=== PATIENT | female | born 1990 | race Caucasian/White ===

== ENCOUNTER 2016-04-15 06:48 | Inpatient (IN) | payer BC ==
[~2016-04-15] VITALS: Ht 167.6 cm; Wt 90.9 kg
[~2016-04-15 06:48] MED LIST: CEFTIN 250250 MG/TAB PO; CLARITIN 1010 MG/TAB PO; COLACE 100100 MG/CAP PO; DICLEGIS; MACROBID 1100 MG/CAP PO; MOTRIN 800800 MG/TAB PO; NORCO 325 MG-51 TAB PO; NORCO 325 MG-7.1 TAB; PRILOSEC10 MG PO; ROBAXIN 75750 MG/TAB PO; ZYRTEC 10MG10 MG PO; ZYRTEC10 MG PO
[2016-04-30] VITALS (26 sets, daily range): BP systolic 100–142; BP diastolic 53–89; PULSE 76–121; TEMP 97.7–98.4
[2016-04-30 07:16] LABS: BASO % 0.3 % (0.0-2.0); EOS # 0.1 (0.0-0.7); EOS % 1.6 % (0-4.0); GRAN # 6.5 (1.4-6.5); GRAN % 73.5 % (42.2-75.2); LYMPH # 1.6 (1.2-3.4); LYMPH % 17.9 % (20.0-51.0); MEAN CELL VOLUME 86 fl (80.0-100.0); MEAN CORPUSCULAR HGB CONC 32 g/dl (33.0-37.0); MEAN PLATELET VOLUME 11.4 fl (7.4-10.4); MONO # 0.6 (0.1-0.6); MONO % 6.4 % (1.7-9.3); PLATELET COUNT 203 K/mm3 (130-400); RED BLOOD COUNT 3.89 M/mm3 (4.10-5.30); WHITE BLOOD COUNT 8.9 K/mm3 (4.8-10.8)
[2016-04-30 07:33] LABS: HEMATOCRIT 33.3 % (37.0-47.0); HEMOGLOBIN 10.8 g/dl (12.5-16.0); MEAN CORPUSCULAR HEMOGLOBIN 28 pg (27.0-31.0)
[2016-05-01 03:50] VITALS: BP 123/68; PULSE 79; TEMP 97.9
[2016-05-01 07:20] VITALS: BP 114/54; PULSE 84; TEMP 98.1
[2016-05-01] MEDS ORDERED: IBU800 M1 PO (09:17)
[2016-05-01] MEDS ORDERED: PERCOCET 325 MG1 TA2 PO (09:18)
== END 2016-05-01 13:40 | disposition home or self-care (01) | DRG 775 ==
LOC: EDSTATUS 06:48 → LDRO 08:54 → LDR 04-30 06:00 → OB 04-30 06:00 → LDR 04-30 06:50 → OB 04-30 13:30
PROVIDERS: Obstetrics & Gynecology
PROC: 10E0XZZ Delivery of Products of Conception, External Approach (ICD-10-PCS; principal; 2016-04-30)
PROC: 0UQMXZZ Repair Vulva, External Approach (ICD-10-PCS; 2016-04-30)
DX: O48.0 Post-term pregnancy (principal); O69.81X0 Labor and delivery complicated by cord around neck, without compression, not applicable or unspecified; O43.123 Velamentous insertion of umbilical cord, third trimester; O70.0 First degree perineal laceration during delivery; Z3A.40 40 weeks gestation of pregnancy; Z37.0 Single live birth
CPT/HCPCS: J2590; J7120

== ENCOUNTER 2016-05-08 17:22 | Emergency (ER) | payer BC ==
[~2016-05-08] VITALS: Ht 167.6 cm; Wt 83.4 kg
[~2016-05-08 17:22] MED LIST changes: +IBU800 M1 PO; +PERCOCET 325 MG1 TA2 PO
[2016-05-08 17:29] VITALS: BP 125/71; TEMP 99
[2016-05-08 18:10] LABS: BASO # 0.1 (0.0-0.2); BASO % 0.4 % (0.0-2.0); EOS # 0.7 (0.0-0.7); EOS % 4.8 % (0-4.0); GRAN # 8.6 (1.4-6.5); HEMATOCRIT 43.5 % (37.0-47.0); LYMPH # 3.6 (1.2-3.4); LYMPH % 25.8 % (20.0-51.0); MEAN CELL VOLUME 86 fl (80.0-100.0); MEAN CORPUSCULAR HEMOGLOBIN 28 pg (27.0-31.0); MEAN CORPUSCULAR HGB CONC 32 g/dl (33.0-37.0); MEAN PLATELET VOLUME 10.2 fl (7.4-10.4); MONO # 0.9 (0.1-0.6); MONO % 6.6 % (1.7-9.3); PLATELET COUNT 343 K/mm3 (130-400); RED BLOOD COUNT 5.06 M/mm3 (4.10-5.30); REDCELL DISTRIBUTION WIDTH-CV 14.2 % (11.5-14.5); WHITE BLOOD COUNT 13.9 K/mm3 (4.8-10.8)
[2016-05-08 18:34] LABS: ADJUSTED CALCIUM 10.1 mg/dL (8.4-10.2); ALBUMIN 4.2 gm/dL (3.5-5.0); BILIRUBIN,TOTAL 0.8 mg/dL (0.0-1.0); C-REACTIVE PROTEIN 2.7 mg/dL (0.0-0.9); CALCIUM 10.3 mg/dL (8.4-10.2); CREATININE, serum 0.81 mg/dL (0.52-1.25); POTASSIUM 3.8 mmol/L (3.4-5.0); TOTAL PROTEIN 8.2 gm/dL (6.4-8.2)
[2016-05-08 18:38] LABS: PH 6 (5-8); SQUAMOUS EPITHELIAL None Seen /hpf; URINE APPEARANCE Clear; URINE BACTERIA None Seen /hpf; URINE BILIRUBIN Negative (NEGATIVE); URINE BLOOD 2+ (NEGATIVE); URINE COLOR Yellow; URINE GLUCOSE Negative (NEGATIVE); URINE KETONE Negative (NEGATIVE); URINE UROBILINOGEN Negative (NEGATIVE)
[2016-05-08 19:39] VITALS: PULSE 95
== END 2016-05-08 19:41 | disposition home or self-care (01) ==
LOC: COL.ER 17:22
PROVIDERS: Emergency Medicine
DX: O90.89 Other complications of the puerperium, not elsewhere classified (principal); N20.0 Calculus of kidney; Z87.442 Personal history of urinary calculi
CPT/HCPCS: J7030; Q9967

== ENCOUNTER 2016-05-13 01:01 | Emergency (ER) | payer BC ==
[~2016-05-13] VITALS: Wt 81.8 kg
[2016-05-13 01:04] VITALS: TEMP 98.6
[2016-05-13] MEDS ORDERED: REGLAN 10MG10 MG/TAB PO (01:27)
[2016-05-13] MEDS ORDERED: ULTRAM 50MG TAB50 MG PO (01:27)
[2016-05-13 01:46] VITALS: BP 123/67; PULSE 86
== END 2016-05-13 01:53 | disposition home or self-care (01) ==
LOC: COL.ER 01:01
DX: R51 Headache (principal)

== ENCOUNTER 2017-09-02 09:29 | Emergency (ER) | payer BC ==
[~2017-09-02] VITALS: Ht 167.6 cm; Wt 89.1 kg
[~2017-09-02 09:29] MED LIST changes: +REGLAN 10MG10 MG/TAB PO; +ULTRAM 50MG TAB50 MG PO
[2017-09-02] MEDS ORDERED: AMOXICILLIN 8751 TAB PO (09:38)
[2017-09-02 10:10] LABS: BASO % 0.3 % (0.0-2.0); EOS # 0.1 (0.0-0.7); EOS % 1.2 % (0-4.0); GRAN # 7.3 (1.4-6.5); GRAN % 77.8 % (42.2-75.2); HEMATOCRIT 41.8 % (37.0-47.0); HEMOGLOBIN 13.8 g/dl (12.5-16.0); LYMPH # 1.1 (1.2-3.4); LYMPH % 11.5 % (20.0-51.0); MEAN CELL VOLUME 91 fl (80.0-100.0); MEAN CORPUSCULAR HEMOGLOBIN 30 pg (27.0-31.0); MEAN CORPUSCULAR HGB CONC 33 g/dl (33.0-37.0); MEAN PLATELET VOLUME 10.1 fl (7.4-10.4); MONO # 0.8 (0.1-0.6); MONO % 8.9 % (1.7-9.3); PLATELET COUNT 195 K/mm3 (130-400); RED BLOOD COUNT 4.62 M/mm3 (4.10-5.30); REDCELL DISTRIBUTION WIDTH-CV 12.7 % (11.5-14.5)
[2017-09-02 10:19] LABS: ALBUMIN 4.2 gm/dL (3.5-5.0); BILIRUBIN,TOTAL 0.5 mg/dL (0.0-1.0); CALCIUM 9.2 mg/dL (8.4-10.2); CREATININE, serum 0.76 mg/dL (0.52-1.25); POTASSIUM 3.9 mmol/L (3.4-5.0); TOTAL PROTEIN 8.4 gm/dL (6.4-8.2)
[2017-09-02 10:42] LABS: COLLECTION METHOD CLEAN CATCH
[2017-09-02 10:50] LABS: MUCOUS Present /lpf; PH 5 (5-8); SQUAMOUS EPITHELIAL 0-2 /hpf; URINE APPEARANCE Clear; URINE BACTERIA None Seen /hpf; URINE BILIRUBIN Negative (NEGATIVE); URINE BLOOD 2+ (NEGATIVE); URINE COLOR Straw; URINE GLUCOSE Negative (NEGATIVE); URINE KETONE Negative (NEGATIVE); URINE LEUKOCYTE ESTERASE Negative (NEGATIVE); URINE NITRATE Negative (NEGATIVE); URINE PROTEIN(semi-quant) Negative (NEGATIVE); URINE UROBILINOGEN Negative (NEGATIVE)
[2017-09-02 12:53] VITALS: BP 108/66; PULSE 106; TEMP 98.1
== END 2017-09-02 13:10 | disposition home or self-care (01) ==
LOC: COL.ER 09:29
PROVIDERS: Emergency Medicine
DX: B99.9 Unspecified infectious disease (principal); H10.89 Other conjunctivitis; R50.9 Fever, unspecified
CPT/HCPCS: J0295; J7030; Q9967

== ENCOUNTER 2018-06-08 07:55 | Day surgery (SDC) | payer BC ==
[2018-06-08] VITALS (7 sets, daily range): BP systolic 102–113; BP diastolic 59–66; PULSE 60–83; TEMP 98.1–99
[~2018-06-08] VITALS: Ht 167.6 cm; Wt 88.7 kg
[~2018-06-08 07:55] MED LIST changes: +AMOXICILLIN 8751 TAB PO
[2018-06-08] MEDS ORDERED: TYLENOL 325MG325 MG PO (08:52)
[2018-06-08] MEDS ORDERED: PRILOTC PO (08:53)
--- NOTE | 2018-06-08 14:50 | NUR ---
Patient returns to [facility]. Alert and oriented. States that she is in discomfort to abdomen and feels nauseous. Medications given per MD orders. Patient requesting ice chips at this time. Tolerating well. Call gray within reach will continue to monitor.
--- NOTE | 2018-06-08 15:05 | NUR ---
Patient is now sleeping comfortably in bed. Will continue to monitor, all safety maintained.
--- NOTE | 2018-06-08 15:35 | NUR ---
Patient states that nausea has improved. Stomach just feels tight and uncomfortable at the moment. Asking for a drink of water and muffin. Tolerating well. Mother is at bedside. Requesting oxygen to come off, tolerating well, maintaining O2 saturations. Call gray within reach, will conintue to monitor.
--- NOTE | 2018-06-08 16:50 | NUR ---
Patient wheeled down to lobby, mother to drive patient home.
--- NOTE | 2018-06-08 17:09 | NUR ---
Patient ambulated to bathroom and had sponateous void. States she is ready to go home at this time. Discharge instructions reviewed with patient and mother. All questions answered. Follow up appointment made for [address] Buenrostro appointment card and perscriptions handed to patients mother.
== END 2018-06-08 16:50 | disposition home or self-care (01) ==
LOC: SDCO 07:55
DX: K42.9 Umbilical hernia without obstruction or gangrene (principal); K43.9 Ventral hernia without obstruction or gangrene; M62.08 Separation of muscle (nontraumatic), other site; F17.210 Nicotine dependence, cigarettes, uncomplicated; Z98.51 Tubal ligation status; Q07.00 Arnold-Chiari syndrome without spina bifida or hydrocephalus; K21.9 Gastro-esophageal reflux disease without esophagitis; Z87.442 Personal history of urinary calculi
CPT/HCPCS: C1781; J1100; J1170; J1885; J2405; J2550; J2704; J3010; J7120

== ENCOUNTER → 2018-07-20 | Outpatient (CLI) | payer BC ==
[~2018-07-20] MED LIST changes: +PRILOTC PO; +TYLENOL 325MG325 MG PO
== END ==
LOC: COL.RAD 07-13 12:30
DX: G93.5 Compression of brain (principal); J32.0 Chronic maxillary sinusitis
CPT/HCPCS: A9585